=== PATIENT | female | born 1950 | race Caucasian/White ===

== ENCOUNTER → 2018-07-02 13:15 | Outpatient (CLI) | payer MEDICARE, SELFPAY ==
--- NOTE | 2018-07-02 13:21 | XR_ITS ---
XR foot wt bearing RT 3V, XR foot wt bearing LT 3V Ordering Physician: Rosina Delaney DPM Patient Age: 68 years: Female HISTORY: ITS.Right heel pain. Left foot pain. TECHNIQUE: Right foot 3 view weightbearing Left foot 3 view weightbearing COMPARISON :No prior studies prior to today ======== RIGHT FOOT 3 VIEW weightbearing . No fracture nor dislocation evident. Joint spaces are fairly well-maintained throughout left foot all-with only suggestion of slight narrowing at the third tarsometatarsal metatarsal joint on the oblique view. There is a moderately thick generous at least 12 mm length plantar calcaneal spur. Modest plantar arch borderline pes planus. The bones are well mineralized for age. . ====== LEFT FOOT 3 view weightbearing . The toes appear intact. Joint spaces well-maintained at toes and MCP joints. Only question of borderline narrowing at the third tarsometatarsal metatarsal joint here on the left. Generous plantar calcaneal spur measuring 11.5 mm length observed. Modest plantar arteries/ borderline pes planus ====== IMPRESSION. --------- Right and left foot overall intact. No acute findings. There is generous size plantar calcaneal spur bilaterally Suggestion subtle narrowing & sclerosis at third tarsal -metatarsal joint Left Foot, and questionable changes this area Right Foot Modest plantar arch, borderline pes planus
== END ==
PROVIDERS: Visit Provider Podiatrist
DX: M79.672 Pain in left foot (principal); M79.671 Pain in right foot
CPT/HCPCS: 73630

== ENCOUNTER 2018-08-12 09:00 | Outpatient (RCR) | payer MEDICARE, SELFPAY ==
--- NOTE | 2018-07-19 11:31 | HMH.PTOPEV ---
PT Outpatient Evaluation Rehab PT Outpatient Evaluation Start: 07/19/18 11:22 Freq: Status: Active Protocol: Document 07/19/18 11:23 JUAN (Rec: 07/19/18 11:31 JUAN [id number]) Electronically Signed By Murphy Braden, PT 07/19/18 11:23 Outpatient Therapy Subjective History Subjective History Pt reports insidious onset R achilles tendon soreness beginning in October 2017. Pt reports chronic pain since, jamie. 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 Pt reports Xrays of R ankle/foot were grossly negative. Chief Complaint Pain Swelling Symptom Type Ache Dull Burning Symptoms Relieved By OTC Meds Symptoms Aggravated By Physical Activity Walking Prior Functional Limitations Housework Walking Stairs Current Functional Limitations Housework Walking Stairs Level of pain today (0-10) 0 Pain scale - at its best (0-10) 0 Pain scale - at its worst (0-10) 5 Ankle/Foot Eval Gait Observation General Gait Pattern Observation Antalgic Gait Assistive Device Ambulation Assistive Device None Palpation Tenderness right Ankle/Foot Palpation Findings Tenderness Ankle/Foot Palpation Overall Comment 2/4 ACHILLES 2 PROX TO INSERTION ROM bilateral Ankle/Foot Dorsiflexion w/Knee Extended 0-15 Active Range Motion (degrees) Ankle/Foot Plantar Flexion Passive Range 0-50 of Motion (degrees) Ankle/Foot Eversion Active Range of 0-15 Motion (degrees) Ankle/Foot Inversion Active Range of 0-40 Motion (degrees) Ankle/Foot ROM Reason Not Measured Within Functional Limits MMT Ankle Dorsiflexion Strength Grade 5 Normal Ankle Plantarflexion Strength Grade 4 Good Foot Eversion Strength Grade 5 Normal Foot Inversion Strength Grade 5 Normal Outpatient Therapy Assessment Impairments Problems/Impairmments Palpation Tenderness Impaired Range of Motion Impaired Strength Impaired Gait Pattern Impaired Walking Impaired Household Care Impaired Stair Climbing
== END 2018-08-12 09:05 | disposition home or self-care (01) ==
LOC: PT 09:00
PROVIDERS: Visit Provider Podiatrist
DX: M76.61 Achilles tendinitis, right leg (principal)
CPT/HCPCS: 97010; 97014; 97033; 97035; 97110; 97140; 97163; G0283

== ENCOUNTER 2021-12-12 05:45 | Emergency (ER) | payer MEDICARE, SELFPAY ==
[2021-12-12] VITALS (7 sets, daily range): BP systolic 111–140; BP diastolic 62–80; PULSE 61–68; RESP 14–18; TEMP 36.6; O2SAT 92–98; BMI 31.7; BMI 31.9
--- NOTE | 2021-12-12 05:52 | ECG_ITS ---
APPROVED REPORT Exam: Resting ECG HR:66 bpm ECG Measurements Heart Rate 66 AXES LA 177 P 57 QRSd 148 QRS -59 QT 464 T 106 QTc 477 Conclusion SINUS RHYTHM LEFT AXIS DEVIATION [QRS AXIS < -30] LEFT BUNDLE BRANCH BLOCK [120+ ms QRS DURATION, 80+ ms Q/S IN V1/V2, 85+ ms R IN I/aVL/V5/V6] ABNORMAL ECG UNCONFIRMED REPORT Electronically signed by : Elcieo Velazquez MD 12/12/2021 21:17:52
--- NOTE | 2021-12-12 06:07 | XR_ITS ---
PROCEDURE INFORMATION: Exam: XR Chest Exam date and time: 12/12/2021 6:09 AM Age: 71 years old Clinical indication: Other: Syncope, nausea TECHNIQUE: Imaging protocol: XR of the chest. Views: 1 view. COMPARISON: No relevant prior studies available. FINDINGS: Lungs: Unremarkable. No consolidation. Pleural spaces: Unremarkable. No pleural effusion. No pneumothorax. Heart/Mediastinum: Cardiac silhouette not enlarged. Vasculature: Aortic tortuosity. Bones/joints: Spine degenerative changes. IMPRESSION: No acute findings.
[2021-12-12 06:21] LABS: Basophils # 0.2 K/mm3 (0-0.2); Basophils % 2.3 % (0.1-2.0); Eosinophils # 0.1 K/mm3 (0.0-0.4); Eosinophils % 1.3 % (0.1-12.0); Hemoglobin 14.3 g/dL (12.2-16.2); Lymphocytes # 2.5 K/mm3 (0.7-4.5); Lymphocytes % 36.7 % (10-50); Mean Corpuscular HGB Conc 33.4 g/dL (31.8-35.4); Mean Corpuscular Hemoglobin 32.5 pg (27.0-31.2); Mean Corpuscular Volume 97.3 fl (81-99); Mean Platelet Volume 7.8 fl (7.4-10.4); Monocytes # 0.4 K/mm3 (0.1-1.0); Monocytes % 5.6 % (1.7-9.3); Neutrophils # 3.7 K/mm3 (1.8-7.8); Neutrophils % 54.1 % (37.0-80.0); Platelet Count 282 K/mm3 (142-424); Red Blood Count 4.42 M/mm3 (4.20-5.40); Red Cell Distribution Width 12.8 % (11.5-17.5); White Blood Count 6.8 K/mm3 (4.8-10.8)
[2021-12-12 06:23] LABS: Chloride 103 mmol/L (98-107); Potassium 3.5 mmoL/L (3.5-5.1); Sodium 137 mmol/L (136-145)
[2021-12-12 06:26] LABS: Alanine Aminotransferase 30 U/L (12-78); Albumin Level 4.3 g/dl (3.5-5.0); Albumin/Globulin Ratio 1.3 (1.1-1.8); Alkaline Phosphatase 67 U/L (38-126); Anion Gap 9.5 mEq/L (5-15); Aspartate Amino Transferase 34 U/L (14-36); Bilirubin,Total 0.7 mg/dl (0.2-1.3); Blood Urea Nitrogen 19 mg/dl (7-17); Carbon Dioxide 28 mmol/L (22.0-30.0); Creatinine Clearance Estimated 70 mL/min (50-200); Estimated Glomerular Filt Rate 71 ml/min (>60); GFR (African American) 86 ML/MIN (>60); Globulin 3.2 g/dL (1.3-3.2); Total Protein,Serum 7.5 g/dl (6.3-8.2)
[2021-12-12 06:27] LABS: Calcium 9.8 mg/dl (8.4-10.2); Glucose 138 mg/dl (74-100)
[2021-12-12 06:32] LABS: C-Reactive Protein 3.6 mg/L (0-4)
[2021-12-12 06:41] LABS: Troponin I < 0.01 ng/ml (0.00-0.034)
--- NOTE | 2021-12-12 07:07 | HMH.EDWEAK ---
ED Disposition Clinical Impression: Vasovagal episode, Left bundle branch block (LBBB) Hypothyroidism Qualifiers: Hypothyroidism type: acquired Qualified Code(s): E03.9 - Hypothyroidism, unspecified Disposition: Home, Self-Care Condition on Discharge: Good Instructions: DI for Muscle Weakness Additional Instructions: see card for follow up britni Referrals: Provider,Joce, [Primary Care Provider] - Enrique Avendano MD [Staff Physician] - - Critical Care Critical Care Time: No Attestation: On 12/12/21, the high probability of a clinically significant, sudden or life threatening deterioration of the following system(s) required my full and direct attention, intervention and personal management. The time I documented below is in addition to time spent performing reported procedures but includes the following listed in this critical care notation. Medical Decision Making - Medical Records Medical records reviewed: Yes: I reviewed the patient's medical records. - [place] Inquiry Pt receiving controlled substance: No Vital Signs: 12/12/21 06:06 12/12/21 06:45 12/12/21 07:00 Temperature 97.8 F Temperature Source Oral Pulse Rate 64 64 Pulse Rate [Left] 68 Respiratory Rate 16 16 14 Blood Pressure 129/73 128/77 Blood Pressure [Right Arm] 115/62 Blood Pressure Mean 85 90 Blood Pressure Mean [Right Arm] 79 Blood Pressure Source Automatic Cuff Blood Pressure Position Sitting 02 Sat by Pulse Oximetry 96 98 97 Oxygen Delivery Method Room Air 12/12/21 07:15 12/12/21 07:30 12/12/21 07:45 Temperature Temperature Source Pulse Rate 63 61 64 Pulse Rate [Left] Respiratory Rate 16 15 17 Blood Pressure 140/76 123/70 111/72 Blood Pressure [Right Arm] Blood Pressure Mean 91 96 85 Blood Pressure Mean [Right Arm] Blood Pressure Source Blood Pressure Position 02 Sat by Pulse Oximetry 95 95 92 L Oxygen Delivery Method - Lab Data Lab results reviewed: Yes: I reviewed the patient's lab results. Lab Results 12/12/21 06:00: WBC 6.8, RBC 4.42, Hgb 14.3, Hct 43.0, MCV 97.3, MCH 32.5 H, MCHC 33.4, RDW 12.8, Plt Count 282, MPV 7.8, Neut % (Auto) 54.1, Lymph % (Auto) 36.7, [place] % (Auto) 5.6, Eos % (Auto) 1.3, Baso % (Auto) 2.3 H, Neut # (Auto) 3.7, Lymph # (Auto) 2.5, [place] # (Auto) 0.4, Eos # (Auto) 0.1, Baso # (Auto) 0.2 12/12/21 06:00: Sodium 137, Potassium 3.5, Chloride 103, Carbon Dioxide 28, Anion Gap 9.5, BUN 19 H, Creatinine 0.80, Estimated Creat Clear 70, Estimated GFR 71, Est GFR ( Amer) 86, Glucose 138 H, Calcium 9.8, Total Bilirubin 0.7, AST 34, ALT 30, Alkaline Phosphatase 67, Troponin I < 0.01, C-Reactive Protein 3.6, Total Protein 7.5, Albumin 4.3, Globulin 3.2, Albumin/Globulin Ratio 1.3 12/12/21 06:00: ESR 30 12/12/21 06:00: TSH 10.70 H, Thyroxine (T4) 9.8 Result diagrams: 12/12/21 06:00 12/12/21 06:00 Orders (Tests/Meds): ED MEDICATIONS Discontinued Medications Generic Name Dose Route Start Last Admin Trade Name Freq PRN Reason Stop Dose Admin Sodium Chloride 1,000 mls @ 999 mls/hr 12/12/21 06:15 12/12/21 06:16 Sod Chlor 0.9% 1000ml Bag IV 12/12/21 07:15 999 mls/hr .Q1H1M WINIFRED Administration Ondansetron HCl 4 mg 12/12/21 06:10 Ondansetron 4mg/2ml Vial IV 12/12/21 06:11 ONCE ONE ORDERS Category Date Time Status Troponin I Q3H Lab 12/12/21 09:15 Ordered Troponin I Q3H Lab 12/12/21 12:15 Ordered UA [Urinalysis and Microscopic] Stat Lab 12/12/21 07:12 Ordered CA echo doppler complete Stat Y 12/12/21 08:31 Ordered - Radiology Data #1 Image(s): Chest Image Reviewed: Yes I have reviewed radiologist's interpretation Preliminary Findings: Normal/NAD - ECG Data Tracing #1 Normal Sinus Rhythm: Yes Conduction abnormalities present: LBBB ECG compared to prior tracings: there are no prior tracings available for comparison - MERCEDES Score for Non-Stemi Age of Patient: 70-79 years old Heart
[2021-12-12 07:08] LABS: Erythrocyte Sedimentation Rate 30 mm/hr (0-30)
--- NOTE | 2021-12-12 07:12 | PC.NURSE ---
Notified lab of TSH add on
--- NOTE | 2021-12-12 07:13 | PC.NURSE ---
checked on pt at this time, repositioned pts bed for comfort. Will continue to monitor
--- NOTE | 2021-12-12 07:26 | PC.NURSE ---
pt aware that we need a UA sample and will let us know when she needs to use the restroom
[2021-12-12 07:38] LABS: T4 (Thyroxine) 9.8 ug/dl (5.53-11.0)
--- NOTE | 2021-12-12 08:09 | PC.NURSE ---
Dr. Godinez at speaking with patient giving patient an update regarding POC
--- NOTE | 2021-12-12 08:10 | PC.NURSE ---
CLAU GAGE at
--- NOTE | 2021-12-12 08:27 | PC.NURSE ---
called echo lab and notified of order
--- NOTE | 2021-12-12 08:31 | CA_ITS ---
APPROVED REPORT EXAM: Comprehensive 2D, Doppler, and color-flow Echocardiogram Store Sales Consultant: Sabina Tan, RT(R) Ht: 5 ft 4 in Wt: 186lbs BSA: 1.90 BP: 128/77 mmHg Indications: SOB, Vomiting, LBBB, ex-smoker, murmur, HLD 2D Dimensions Aortic Root 2.00 cm LA Volume 24.30 mL LA Volume Index 12.80 mL/m2 (M/F) 16-34 M-Mode Dimensions RVDd 2.37 cm (0.9-2.6) LA Diam 3.35 cm (1.9-4.0) LVDd 4.85 cm (3.5-5.7) Ao Diam 2.22 cm (2.0-3.7) LVDs 2.97 cm (3.5-5.7) IVSd 1.12 cm (0.6-1.1) PWd 0.80 cm (0.6-1.1) EF (Teich) 69.00% FS 38.80% EDV (Teich) 110.20 mL ESV (Teich) 34.20 mL LV Diastology E Decel Time 303.00 (160-240 msec) E/A Ratio 0.60 MED E' 5.40 (< 7 cm/sec) E'/MED E' Ratio 11.04 (>14) LAT E' 7.80 (<10 cm/sec) E/LAT E' Ratio 7.64 (>14) Mitral Valve MV E Max Thiago. 60.00 (40-130 cm/s) MV A Velocity 100.00 (40-130 cm/s) E/A Ratio 0.60 MV Decel. Time 303.00 (160-240 ms) MV PHT 89.00 ms Left Ventricle Left atrium is mildly enlarged, left ventricle is normal size, mild concentric left ventricular hypertrophy, estimated ejection fraction 55% with no regional wall motion abnormality, grade 1 diastolic dysfunction seen without tissue Doppler evidence of raise left atrial pressure. Right Ventricle Right atrium and right ventricle are normal size and contractility. Aortic Valve Aortic valve is thickened and calcified without aortic stenosis or aortic insufficiency. Mitral Valve Mitral valve grossly normal, there is trace mitral regurgitation. Tricuspid Valve Tricuspid valve grossly normal, there is trace tricuspid regurgitation, tricuspid regurgitation jet velocity is inadequate for calculation of the right ventricular systolic pressure. Pulmonic Valve Pulmonic valve is poorly visualized. Great Vessels Aortic root is normal size. Inferior vena cava is poorly visualized. Pericardium No significant pericardial effusion noted. Conclusion 1. Mildly enlarged left atrium, normal left ventricular size, mild concentric left ventricular hypertrophy, estimated ejection fraction 55% with no regional wall motion abnormality, grade 1 diastolic dysfunction seen without tissue Doppler evidence of raise left atrial pressure. 2. Thickened and calcified aortic valve without aortic stenosis or aortic insufficiency. 3. Trace mitral and tricuspid regurgitation. 4. No significant pericardial effusion. 5. Inferior vena cava is poorly visualized. Electronically signed by : Bhanu Bryant MD 12/13/2021 12:05:49
--- NOTE | 2021-12-12 08:43 | PC.NURSE ---
pt ambulatory to restroom without complications
--- NOTE | 2021-12-12 08:52 | PC.NURSE ---
UA sent to lab; pt ambulatory back to ED room 6 from restroom without complications. Hooked back to monitor; no other needs at this time
--- NOTE | 2021-12-12 08:54 | PC.NURSE ---
Sabina with ECHO at
--- NOTE | 2021-12-12 09:17 | PC.NURSE ---
Called Dietary for a cardiac breakfast tray
[2021-12-12 09:21] LABS: Microscopic, Urine URINE MICROSCOPIC (MICROSCOPIC)
--- NOTE | 2021-12-12 09:27 | PC.NURSE ---
pt sitting up on side of the bed eating her breakfast tray; no other needs at this time
[2021-12-12 09:35] LABS: Appearance,Urine CLEAR (Clear); Bilirubin,Urine Negative (Negative); Blood, Urine Negative (Negative); Color,Urine YELLOW (Yellow); Glucose,Urine (UA) Negative (Negative); Ketones,Urine Negative (Negative); Leukocyte Esterase,Urine Negative (Negative); Nitrate,Urine Negative (Negative); Protein,Urine Negative (Negative); Specific Gravity, Urine 1.015 (1.005-1.030); Urobilinogen,Urine 0.2 EU/dl (0.2)
--- NOTE | 2021-12-12 09:48 | PC.NURSE ---
checked on pt at this time, she is sitting up on the side of the bed finishing breakfast, pt states no needs at this time. Will continue to monitor
[2021-12-12 09:54] LABS: Amorphous Sediment,Urine 1+ /lpf; Bacteria,Urine 1+ /lpf; Squamous Epithelial Cell,Urine Occasional #/hpf (0-5); WBC,Urine Occasional #/hpf (0-3)
--- NOTE | 2021-12-12 10:15 | PC.NURSE ---
contacted lab to check on status of troponin result on pt, spoke with angel state the second troponin has states of routine so its just not going on the analyzer, states it will be approx 15 minutes for results.
[2021-12-12 10:23] LABS: Troponin I < 0.01 ng/ml (0.00-0.034)
== END 2021-12-12 10:48 | disposition home or self-care (01) ==
PROVIDERS: Emergency Provider Emergency Medicine
DX: R55 Syncope and collapse (principal); R53.1 Weakness; R11.2 Nausea with vomiting, unspecified; I44.7 Left bundle-branch block, unspecified; E78.5 Hyperlipidemia, unspecified; E03.9 Hypothyroidism, unspecified; E66.9 Obesity, unspecified; Z79.899 Other long term (current) drug therapy; Z88.8 Allergy status to other drugs, medicaments and biological substances; Z68.31 Body mass index [BMI] 31.0-31.9, adult; Z87.891 Personal history of nicotine dependence; Z82.49 Family history of ischemic heart disease and other diseases of the circulatory system; Z83.438 Family history of other disorder of lipoprotein metabolism and other lipidemia; Z80.9 Family history of malignant neoplasm, unspecified
CPT/HCPCS: 71045; 80053; 81001; 84436; 84443; 84484; 85025; 85651; 86140; 93005; 93306; 96361; 96374; 99285

== ENCOUNTER → 2021-12-16 14:46 | Outpatient (CLI) | payer MEDICARE, SELFPAY | PROVIDERS: Visit Provider Nurse Practitioner Family | DX: I10 Essential (primary) hypertension (principal); I44.7 Left bundle-branch block, unspecified; I95.9 Hypotension, unspecified; R55 Syncope and collapse; R94.31 Abnormal electrocardiogram [ECG] [EKG] | CPT/HCPCS: 93270 ==

== ENCOUNTER → 2021-12-24 06:43 | Outpatient (CLI) | payer MEDICARE, SELFPAY ==
--- NOTE | 2021-12-24 06:45 | NM_ITS ---
APPROVED REPORT Exam: Nuclear Stress Test Indication: SOB, Abnormal EKG, Syncope, HTN, Former tobacco use, Family history Patient Location: Outpatient Stress Tech: Sienna Justin DC Tech:Janine Em, ARRT, RT (R)(N) Ht: 5 ft 4 in Wt: 190 lbs Bra Size: C HR: 65 bpm BP: 135/78 mmHg BSA: 1.91 m2 TID: 1.06 BMI: 32.6 History: SOB, Abnormal EKG, Syncope, HTN, Former tobacco use, Family history Procedure: Patient received a 0.4 mg of intravenous Lexiscan, resting heart rate 65 bpm, resting blood pressure 135/78 mmHg, with Lexiscan maximum heart rate achived was 85 bpm which is Less than 85 % of the maximum predicted heart rate and blood pressure was 135/78 mmHg. With Lexiscan, patient denied any complaint of chest pain. Electrocardiogram Resting electrocardiogram shows sinus rhythm with a bundle branch block, with Lexiscan there is less than 1.[address] segment depression noted from the baseline EKG. The EKG portion of the Lexiscan is nondiagnostic. Cardiac Stress and Resting SPECT Images: Cardiac Stress and Resting SPECT images were obtained using technetium 99m Myoview 31.3 mCi stress and 10.68 mCi at rest. Prophylaxis of segmental wall motion and calculation of the ejection fraction also done. Prone images were also obtained. Cardiac stress and resting SPECT images show uniform myocardial activity without segmental perfusion abnormality, computer derived ejection fraction is over 65% with no regional wall motion abnormality, right ventricle is normal size and contractility. Conclusion: 1. The EKG portion of the Lexiscan is nondiagnostic. 2. No scintigraphic evidence of reversible ischemia seen, compared to ejection fraction is over 65% with no regional wall motion abnormality, right ventricle is normal size and contractility. 3. Normal Lexiscan Myoview study. Electronically signed by : Bhanu Bryant MD 12/24/2021 20:08:54
--- NOTE | 2021-12-24 06:45 | CA_ITS ---
APPROVED REPORT Exam: Pharmacologic Technologist: Sienna Srinivasan, Ht: 5 ft 4 in Wt: 190 lbs BSA: 1.91 m2 HR: 62 bpm BP: 135/78 mmHg Medical History Medications: Lisinopril,,,,, Levothyroxine,,,,, HCTZ,,,,, LoraTADINE,,,,, Stress Test Details Test: LEXISCAN HR Resting HR: 65 bpm Max Heart Rate (APMHR): 150.905703 bpm Max HR Achieved: 85 bpm Target HR (85% APMHR): 127.047813 bpm % of APMHR: 56.67 Recovery HR: 78 bpm BP Resting BP: 135.0/78.0 mmHg Max BP: 135.0/78.0 mmHg Recovery BP: 123.0/71.0 mmHg ECG Resting ECG: NSR, PVCs, LBBB, right axis deviation, cannot r/o old anteroseptal & lateral MIs, low voltage QRS Clinical Exercise duration: 04:00 min Highest Stage Achieved: Stress ECG Conclusion Symptoms: Mild chest tightness, mild head discomfort Arrhythmias/Ectopy: Occassional isolated PVCs ST-T Changes: Exaggreation of baseline abns Conclusion: Non-diagnostic Lexiscan stress. Myoview images reported separately Test Summary REST 05:54 . . 65 . 135/ 78 . . Stage 1 01:00 . . 82 . . . . Stage 2 01:00 . . 79 . 133/ 70 . . Stage 3 01:00 . . 82 . 128/ 76 . . Stage 4 01:00 . . 77 . 121/ 77 . Stop exercise at 04:00 RECOVERY 01:00 . . 79 . . . . RECOVERY 02:00 . . 76 . 124/ 73 . . RECOVERY 03:00 . . 78 . 123/ 71 . . RECOVERY 03:21 . . 80 . 123/ 71 . . Electronically signed by : Bhanu Bryant MD 12/24/2021 20:05:53
--- NOTE | 2021-12-24 08:32 | HMH.ITSHM ---
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 []LORATADINE LISINOPRIL LEVOTHYROXINE HCTZ
== END ==
PROVIDERS: PCP Internal Medicine; Visit Provider Nurse Practitioner Family
DX: I10 Essential (primary) hypertension (principal); I44.7 Left bundle-branch block, unspecified; I95.9 Hypotension, unspecified; R55 Syncope and collapse; R94.31 Abnormal electrocardiogram [ECG] [EKG]
CPT/HCPCS: 78452; 93017; A9502; J2785

== ENCOUNTER → 2022-01-02 07:46 | Outpatient (CLI) | payer MEDICARE, SELFPAY | PROVIDERS: PCP Internal Medicine; Visit Provider Nurse Practitioner Family | DX: R06.02 Shortness of breath (principal); Z87.891 Personal history of nicotine dependence | CPT/HCPCS: 94060 ==

== ENCOUNTER → 2022-03-24 12:50 | Outpatient (CLI) | payer MEDICARE, SELFPAY ==
--- NOTE | 2022-03-24 14:42 | PC.NURSE ---
PFT and 6 Minute Walk Completed without incident. Pt given Albuterol 0.083% via HHN, per protocol, Pt tolerated tx well.
== END ==
PROVIDERS: PCP Internal Medicine; Visit Provider Internal Medicine Pulmonary Disease
DX: R06.09 Other forms of dyspnea (principal)
CPT/HCPCS: 94060; 94618; 94726; 94729

== ENCOUNTER → 2022-03-28 07:52 | Outpatient (CLI) | payer MEDICARE, SELFPAY ==
--- NOTE | 2022-03-28 07:52 | CT_ITS ---
FINAL REPORT CLINICAL HISTORY: lung cancer screening, previous smoker. smoked 1 pack per week x 40 years. Family hx of lung cancer. FINDINGS: Low-Dose Chest CT CTDI vol (mGy): 2.90 DLP (mGy-cm): 96.38 Axial images were obtained from the lung apex to the mid abdomen by computed tomography. Low-dose protocol was utilized. FINDINGS: CHEST: There is no axillary adenopathy. There is no hilar or mediastinal adenopathy. The heart is proper size. There is no pericardial or pleural effusion. Limited images of the upper abdomen demonstrate a small sliding type hiatal hernia. Lung window images demonstrate no suspicious infiltrate or nodule. There is a calcified granuloma in the left upper lobe. IMPRESSION: Lung RADS category 1. Recommend 12 month follow-up low-dose chest CT. Reviewed, Interpreted and Dictated by Clarence Washington MD Transcribed by Torsten Galeas Authenticated and . [facility]
== END ==
PROVIDERS: PCP Internal Medicine; Visit Provider Internal Medicine Pulmonary Disease
DX: Z87.891 Personal history of nicotine dependence (principal); Z12.2 Encounter for screening for malignant neoplasm of respiratory organs
CPT/HCPCS: 71271